=== PATIENT | female | born 1955 | race Two or more races ===

== ENCOUNTER 2020-08-02 12:30 | Emergency (ER) | payer MEDICARE, OTHER ==
[~2020-08-02] VITALS: Ht 160 cm; Wt 79.4 kg
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
--- NOTE | 2020-08-02 12:52 | NUR ---
DR EUBANKS AT BEDSIDE FOR EVAL
[2020-08-02] MEDS ORDERED: ACETAMINOPHEN 325 MG TABLET ONE (13:10)
[2020-08-02] MEDS ORDERED: ACETAMINOPHEN 325 MG TABLET PO ONE (13:30)
[2020-08-02 15:21] VITALS: BP 164/94
--- NOTE | 2020-08-02 15:21 | NUR ---
Patient discharged to home with daughter in stable condition. Written and verbal after care instructions given. Patient verbalizes understanding of instruction.
== END 2020-08-02 15:22 | disposition home or self-care (01) ==
LOC: ER 12:33
DX: S16.1XXA Strain of muscle, fascia and tendon at neck level, initial encounter (principal); R51.9 Headache, unspecified; I10 Essential (primary) hypertension; V49.49XA Driver injured in collision with other motor vehicles in traffic accident, initial encounter; Y93.89 Activity, other specified; Y92.413 State road as the place of occurrence of the external cause; Y99.8 Other external cause status
CPT/HCPCS: 70450-TC; 72125-TC